=== PATIENT | female | born 1935 | race Caucasian/White ===

== ENCOUNTER 2017-11-05 13:41 | Emergency (ER) | END 2017-11-05 18:28 | disposition home or self-care (01) ==

== ENCOUNTER 2018-09-14 21:52 | Emergency (ER) | payer MEDICARE, OTHER ==
[~2018-09-14] VITALS: Ht 154.9 cm; Wt 61.4 kg
[~2018-09-14 21:52] MED LIST: AMLO5TAB4 PO; ATOR20TA38 PO; CIPR500T4 PO; DONE10TA7; DONE10TA7 PO; GABA300C16 PO; HYDR25TA6 PO; INSU300I SQ; MEMA28CA PO; METF500T24 PO; METH750T93 PO; NAPR-688 PO; NITR-58 PO; ONDA4TAB11 PO; PYRI25TA4; SERT-165 PO; SIMV10TA; TML25OP5 BOTH EYES; VALS80TA2; VALS80TA2 PO
[2018-09-14 21:55] VITALS: Ht 154.9 cm; Wt 61.4 kg
[2018-09-14] MEDS ORDERED: SOD CHLORIDE 0.9% 1,000 ML IV STA (22:11)
[2018-09-14] MEDS ORDERED: OMEG-135 PO (22:22)
[2018-09-14] MEDS ORDERED: ERGO500013 PO (22:22)
--- NOTE | 2018-09-14 23:23 | ERD ---
ER Documentation Chief Complaint Chief Complaint Ground level mechanical fall w/low back pain. No LOC, A/Ox4 HPI This is an 82-year-old female that presents to the emergency department brought in by EMS. Her daughter helps her to attend to her activities of daily living as the patient has a history of dementia. Her daughter indicates that she had a mechanical ground-level fall just prior to arrival. The daughter stated she wit nessed the fall. The patient is very unsteady in her gait and she had fallen from a ground-level onto her left hip. She is complaining of left hip pain and lower back pain. She did not hit her head or lose consciousness. She was unable to get up and ambulate after the fall due to the severity of the pain. No analgesic medication was taken prior to arrival the patient is not on any anticoagulants or blood thinners. ROS All systems reviewed and are negative except as per history of present illness. Medications Home Meds Reported Medications Ergocalciferol (Vitamin D2) (VITAMIN D2) 50,000 Unit Capsule, 61661 UNIT PO QFRI, CAP 09/14/18 [place]-3 Fatty Acids/Fish Oil (Fish Oil 1,000 mg Capsule) 1 Each Capsule, 1 EACH PO DAILY, CAP 09/14/18 Timolol Maleate* (Timoptic*) 0.25%-5ml Opht, 1 DROP BOTH EYES BID, #1 EA 11/05/17 Amlodipine Besylate* (Norvasc*) 5 Mg Tablet, 5 MG PO DAILY, TAB 11/05/17 Insulin Glargine,Hum.rec.anlog (Charley Christy) 300 Unit/1 Ml Insuln.pen, 66 UNIT SQ QPM, EA 11/05/17 Discontinued Reported Medications Metformin Hcl* (Metformin Hcl*) 500 Mg Tablet, 500 MG PO WITH BREAKFAST DINNE, #60 TAB 11/05/17 Gabapentin* (Gabapentin*) 300 Mg Capsule, 300 MG PO DAILY, #60 CAP 11/05/17 Sertraline Hcl* (Sertraline Hcl*) 100 Mg Tablet, 100 MG PO DAILY, #30 TAB 11/05/17 Atorvastatin Calcium* (Atorvastatin Calcium*) 20 Mg Tablet, 20 MG PO QHS, #30 TAB 11/05/17 Memantine* (Namenda* XR) 28 Mg Cap.spr.24, 28 MG PO DAILY, #30 TAB 11/05/17 Hydrochlorothiazide* (Hydrochlorothiazide*) 25 Mg Tab, 25 MG PO DAILY, #30 TAB 11/05/17 Donepezil* (Donepezil*) 10 Mg Tablet, 10 MG PO DAILY, #30 TAB 11/05/17 Valsartan* (Diovan*) 80 Mg Tablet, 80 MG PO DAILY, TAB 11/05/17 Pyridoxine Hcl* (Pyridoxine Hcl*) 25 Mg Tablet 03/05/12 Simvastatin* (Zocor*) 10 Mg Tablet 03/05/12 Donepezil* (Aricept*) 10 Mg Tablet 03/05/12 Valsartan* (Diovan*) 80 Mg Tablet 03/05/12 Discontinued Scripts Methocarbamol* (Robaxin*) 750 Mg Tablet, 750 MG PO Q6H PRN for MUSCLE SPASMS, #10 TAB Prov:ENRICO HAINES DO 11/05/17 Naproxen* (Naproxen*) 500 Mg Tablet, 500 MG PO BID PRN for PAIN, #10 TAB Prov:ENRICO HAINES DO 11/05/17 Ondansetron (Zofran Odt) 4 Mg Tab.rapdis, 4 MG PO Q6 for NAUSEA AND/OR VOMITING, #10 Prov:ENRICO HAINES DO 11/05/17 Nitrofurantoin Monohyd Macrocr* (Macrobid*) 100 Mg Capsr, 100 MG PO HS for 7 Days, CAP Prov:ENRICO HAINES DO 11/05/17 Ciprofloxacin Hcl* (Ciprofloxacin Hcl*) 500 Mg Tablet, 500 MG PO BID for 7 Days, TAB Prov:ENRICO HAINES DO 11/05/17 Allergies Allergies: Coded Allergies: No Known Allergy (Unverified , 11/05/17) PMhx/Soc History of Surgery: Yes (ANKLE,CATARACT W IOL) Anesthesia Reaction: No Hx Neurological Disorder: No Hx Respiratory Disorders: No Hx Cardiac Disorders: Yes (HTN) Hx Psychiatric Problems: Yes (DEMENTIA) Hx Miscellaneous Medical Probl: Yes (CHOLESTEROL PROBLEM, DM) Hx Alcohol Use: No Hx Substance Use: No Hx Tobacco Use: No Smoking Status: Never smoker Physical Exam Vitals Vital Signs Date Temp Pulse Resp B/P (MAP) Pulse Ox O2 O2 Flow FiO2 Time Delivery Rate 09/14/18 99.1 85 21 149/68 96 21:55 (95) Physical Exam Constitutional:Well-developed. Well-nourished. HEENT:Normocephalic. Atraumatic.Pupils were equal round reactive to light. Moist mucous membranes.No tonsillar exudates. No nasal septal hematoma. No hemotympanum. Neck: No nuchal rigidity. No lymphadenopathy. No posterior cervical spine tenderness or step-offs. Respiratory: Not using accessory muscles of respiration.Lungs were clear to auscultation bilaterally. No rhonchi. No rales. No wheezing. Cardiovascular: Regular rate regular rhythm.No murmurs. No rubs were appreciated.S1, S2 normal. Distal pulses are palpable 2+ bilaterally. GI: Abdomen was soft. Nontender. Non Distended. No pulsatile abdominal masses or bruits. No rebound. No guarding. Bowel sounds were present and normal. Muscle skeletal: Full range of motion of both the upper and lower extremities bilaterally.Normal muscle tone.No assymetrical calf tenderness or swelling. Lower extremities are of equal length and symmetrical no internal or external r otation. Tenderness over the left anterior superior iliac spine. Tenderness with active elevation of the left lower extremity. No tenderness with palpation percussion of the thoracic or lumbar spinous processes. Skin: No petechia, no purpura. No lesions on the palms or the soles of the feet. No maculopapular rash. NEURO: Patient was alert, awake, orientated to person but not to place or time. Gait was not observed. Result Diagram: 09/14/18222209/14/182222 Results 24 hrs Laboratory Tests Test 09/14/18 22:23 White Blood Count 7.8 10^3/ul Red Blood Count 4.30 10^6/ul Hemoglobin 11.6 g/dl Hematocrit 37.1 % Mean Corpuscular Volume 86.3 fl Mean Corpuscular Hemoglobin 27.0 pg Mean Corpuscular Hemoglobin Concent 31.3 g/dl Red Cell Distribution Width 14.5 % Platelet Count 194 10^3/UL Mean Platelet Volume 10.7 fl Immature Granulocytes % 0.400 % Neutrophils % 72.5 % Lymphocytes % 16.9 % Monocytes % 7.8 % Eosinophils % 2.1 % Basophils % 0.3 % Nucleated Red Blood Cells % 0.0 /100WBC Immature Granulocytes # 0.030 10^3/ul Neutrophils # 5.7 10^3/ul Lymphocytes # 1.3 10^3/ul Monocytes # 0.6 10^3/ul Eosinophils # 0.2 10^3/ul Basophils # 0.0 10^3/ul Nucleated Red Blood Cells # 0.0 10^3/ul Prothrombin Time 13.7 Sec Prothrombin Time Ratio 1.1 INR International Normalized Ratio 1.04 Activated Partial Thromboplast Time 28.8 Sec Sodium Level 144 mmol/L Potassium Level 4.3 mmol/L Chloride Level 108 mmol/L Carbon Dioxide Level 25 mmol/L Anion Gap 11 Blood Urea Nitrogen 27 mg/dl Creatinine 0.72 mg/dl Est Glomerular Filtrat Rate mL/min mL/min Glucose Level 151 mg/dl Calcium Level 9.4 mg/dl Total Bilirubin 0.4 mg/dl Direct Bilirubin 0.00 mg/dl Indirect Bilirubin 0.4 mg/dl Aspartate Amino Transf (AST/SGOT) 47 IU/L Alanine Aminotransferase (ALT/SGPT) 39 IU/L Alkaline Phosphatase 54 IU/L Total Protein 7.4 g/dl Albumin 4.1 g/dl Globulin 3.30 g/dl Albumin/Globulin Ratio 1.24 Current Medications Medications Dose Sig/Solis Start Time Status Last (Trade) Ordered Route PRN Stop Time Admin Dose Reason Admin Sodium 1,000 ml @ Q1H STAT 09/14/18 DC 09/14/18 Chloride 1,000 mls/hr IV 22:11 22:33 09/14/18 23:10 Procedures/MDM This is an 82-year-old female that presents to the emergency department after she had a mechanical slip and fall onto a carpeted surface. IV access was established but the daughter stated she would prefer no analgesic medication to be given to the patient. There is no electrolyte abnormalities. The patient was not coagulopathic. There is no evidence of anemia. I obtained a 2 view radiograph of the patient's pelvis and left hip. This was reviewed by myself the radiologist and there is no evidence of a fracture. Therefore I did feel this was likely muscle skeletal in injury. There is no signs of head trauma. There is no reproducible tenderness of the thoracic or lumbar spinous processes. Therefore did not obtain any radiographic imaging the patient's back. There is no ecchymosis of the abdomen or back. Utilizing the Nexus criteria no radiographic imaging was obtained of the patient's spine. The patient was discharged home in fair condition. They were instructed to return to the emerg ency department at any time if there was any worsening of their condition. The patient stated they would follow up with their PCP in the next 24-48 hours to initiate a suitable medication regimen under the care of their PCP as well as to allow their PCP to monitor any drug reactions. The patient was discharged home with prescriptions after they gave informed consent to the new medication. They were also fully informed by myself on the adverse effects and adverse drug interactions in order to provide adequate safeguards to prevent possible adverse reactions to medications. Departure Diagnosis: Primary Impression: Hip injury Additional Impression: Fall Condition: Fair BUDDY TORIBIO MD Sep 14, 2018 23:23
[2018-09-15 00:36] VITALS: BP 139/62; PULSE 81; RESP 20
== END 2018-09-15 02:23 | disposition home or self-care (01) ==
LOC: E/R 21:52
DX: S79.919A Unspecified injury of unspecified hip, initial encounter (principal); E11.9 Type 2 diabetes mellitus without complications; I10 Essential (primary) hypertension; W18.39XA Other fall on same level, initial encounter; Y92.9 Unspecified place or not applicable; Z79.4 Long term (current) use of insulin
CPT/HCPCS: 72170; 73510; 80053; 85025; 85610; 85730; 99284; J7030; 73502